=== PATIENT | female | born 1960 ===

== ENCOUNTER 2017-01-20 07:23 | Day surgery (SDC) | payer BC ==
[2017-01-12 14:07] VITALS: BMI 26.5
--- NOTE | 2017-01-17 09:17 | HP ---
Admitting History and Physical - Primary Care Physician PCP: Halle Clolier - Admission Chief Complaint: Right atypia History of Present Illness: 56 year old postmenapausal female . Screening mammogram 09/2016 showed right breast assymetry at 12:00. Us showed 7mm retroareolar density. US core bx 10/2016 right breast 12:00 Atypical lobular hyperplasia. 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 History Source: Patient Limitations to Obtaining History: No Limitations - Past Medical History Cardiovascular: Yes: Hyperlipdemia - Past Surgical History Additional Past Surgical History: bartholins cystectomy left ankle repair excision of right eye cyst bilateral toe surgery - Smoking History Smoking history: Never smoked Have you smoked in the past 12 months: No - Alcohol/Substance Use Hx Alcohol Use: Yes (socially) Home Medications - Allergies Allergies/Adverse Reactions: Allergies Allergy/AdvReac Type Severity Reaction Status Date / Time Penicillins Allergy Severe Rash Verified 01/12/17 13:59 - Home Medications Home Medications: Ambulatory Orders Pravastatin Sodium [Pravachol (Nf)] 20 mg PO DAILY 01/12/17 Family Disease History - Family Disease History Family Disease History: CA: Grandparent (maternal GM breast ca unknown age// Maternal GGM breast cancer) Physical Examination Constitutional: Yes: Well Nourished Breast(s): Yes: Other (diffusely nodular no palpable masses or adenopathy bilateral post bx changes right breast) Problem List - Problems (1) Atypical lobular hyperplasia of right breast Code(s): N60.91 - UNSPECIFIED BENIGN MAMMARY DYSPLASIA OF RIGHT BREAST Assessment/Plan Right breast wide excision with mammogram needle localization
[~2017-01-20 07:23] MED LIST: LACTATED RINGERS SOLUTION 1,000 ML IV SCH; ONDANSETRON 4 MG/2 ML VIAL IVPUSH PRN; PROMETHAZINE HCL 25 MG/1 ML VIAL IVPUSH PRN; oxyCODONE HCL 5 MG TABLET PO PRN
[2017-01-20] MEDS ORDERED: PROPOFOL 20 ML ONE ×6 (10:13→11:49)
[2017-01-20] MEDS ORDERED: KETOROLAC TROMETHAMINE 30 MG/1 ML VIAL ONE (10:14)
[2017-01-20] MEDS ORDERED: DEXAMETHASONE SOD PHOSPHATE 4 MG/1 ML VIAL ONE (10:14)
[2017-01-20] MEDS ORDERED: ceFAZolin SODIUM 1 GM VIAL ONE (10:14)
[2017-01-20] MEDS ORDERED: ONDANSETRON 4 MG/2 ML VIAL ONE ×2 (10:14→11:14)
[2017-01-20] MEDS ORDERED: DESFLURANE GAS 240 ML BOTTLE IH ONE (10:18)
[2017-01-20] MEDS ORDERED: SCOPOLAMINE HYDROBROMIDE 1 PATCH PATCH.TD72 ONE (10:25)
[2017-01-20] MEDS ORDERED: ACETAMINOPHEN INJECTION 100 ML IVPB ONE (10:26)
[2017-01-20] MEDS ORDERED: MIDAZOLAM HCL 2 MG/2 ML SINGLE DOSE VIAL ONE (10:26)
[2017-01-20] MEDS ORDERED: CLINDAMYCIN PHOSPHATE 600 MG/4 ML VIAL ONE ×2 (10:37)
[2017-01-20] MEDS ORDERED: LIDOCAINE HCL 1%, 10 MG/ML (20ML VIAL) ONE (10:40)
[2017-01-20] MEDS ORDERED: LIDOCAINE HCL 1%, 10 MG/ML (50 mL VIAL) INF ONE (11:09)
[2017-01-20] MEDS ORDERED: ePHEDrine SULFATE 50 MG/1 ML AMPULE ONE (11:54)
[2017-01-20] MEDS ORDERED: BUPIVACAINE HCL/PF 0.25% (2.5MG/ML) 10 ML VIAL IJ ONE (12:08)
[2017-01-20] MEDS ORDERED: ONDANSETRON 4 MG/2 ML VIAL IVPB PRN (12:27)
[2017-01-20] MEDS ORDERED: KETOROLAC TROMETHAMINE 30 MG/1 ML VIAL IVPUSH PRN (12:27)
[2017-01-20] MEDS ORDERED: DEXTROSE 5%-0.45% SALINE 1,000 ML IV SCH (12:30)
[2017-01-20 16:10] VITALS: BP 124/70; PULSE 66; TEMP 97.8
--- NOTE | 2017-01-23 17:06 | OP ---
DATE OF OPERATION: 01/20/2017 PREOPERATIVE DIAGNOSIS: Right breast atypia. POSTOPERATIVE DIAGNOSIS: Right breast atypia. PROCEDURE: Right breast wide excision with needle localization. SURGEON: Halle Collier MD NUTRITION PROGRAM INSTRUCTOR: AMIRA Diallo ANESTHESIOLOGIST: Chau Herndon MD SPECIMEN: Right breast tissue. ESTIMATED BLOOD LOSS: Minimal. INDICATIONS FOR PROCEDURE: The patient is a 56-year-old woman with a strong family history of breast cancer. Screening mammogram showed right breast asymmetry. Ultrasound showed a 7-mm retroareolar mass. Core biopsy showed atypical lobular hyperplasia. Excision was recommended to the patient who is going to the operating room today for the procedure. DESCRIPTION OF PROCEDURE: The patient was taken to breast imaging where she underwent localization of the clip in the right breast. She was taken to ambulatory surgery where informed consent was obtained. The right breast was identified with a marker. She was taken to the operating room where sequential compression stockings were placed on both legs. She received Cleocin prior to surgery. General anesthesia was initiated. The guidewire could be seen exiting the right breast in the 12 o'clock position. The skin was infiltrated with 1% lidocaine. An incision was made at the upper border of the areola. The dissection was deepened using electrocautery. The tip of the needle was identified and grasped with a clamp. Electrocautery was used to mobilize the tissue around the tip of the needle until it was completely from the breast parenchyma. There was some bleeding which was controlled with electrocautery. The needle was disassembled, and the specimen and wire were removed. A specimen radiograph did not show the clip. Tissue from the inferior margin was removed. Specimen radiograph of this specimen showed the clip. The main specimen was labeled with a silk suture, indicating long lateral and short superior. The inferior margin was labeled with a stitch at the biopsy cavity site. Both specimen were placed in formalin and sent to Pathology for further examination. The patient tolerated the procedure well. At the end of the procedure, all sponge and instrument counts were correct. She was taken to the recovery room in satisfactory condition. Brooklynn [id number]
--- NOTE | 2017-01-25 12:50 | PATH ---
Surgical Pathology Report Patient Name: BEN ROY [facility]. Rec. #: [id number] /Age/Gender: 1960 (Age: 56) / F Account: [id number] Location: [facility] AMBULATORY Taken: 01/20/2017 Received: 01/21/2017 Reported: 01/25/2017 Physicians: Halle Collier M.D. Specimen(s) Received A: RIGHT BREAST WIDE EXCISION B: INFERIOR MARGIN RIGHT BREAST Clinical History Atypia Final Diagnosis A. BREAST, RIGHT, WIDE EXCISION: BREAST TISSUE SHOWING ATYPICAL DUCTAL HYPERPLASIA (ADH) ARISING IN A BACKGROUND OF PROLIFERATIVE FIBROCYSTIC CHANGES INCLUDING CYSTIC APOCRINE METAPLASIA, USUAL DUCTAL HYPERPLASIA (UDH), STROMAL FIBROSIS AND ASSOCIATED CALCIFICATIONS. B. BREAST, RIGHT, INFERIOR MARGIN, EXCISION: BENIGN BREAST TISSUE SHOWING FIBROCYSTIC CHANGES INCLUDING MICROCYST FORMATION AND USUAL DUCTAL HYPERPLASIA (UDH). PRIOR BIOPSY SITE CHANGES ARE PRESENT. Electronically Signed Katherine Delcid M.D. Gross Description A. Received in formalin, labeled "right breast wide excision," is a 4.6 x 4.2 x 1.8 cm. jang-yellow, irregular, portion of fibroadipose tissue with a needle localization wire present. There is a short suture marking the superior aspect and a long suture marking the lateral aspect, per the surgeon. There is no skin or nipple present. The specimen is inked as follows: Superior blue; inferior green; anterior and lateral red; medial yellow; deep black. The specimen is serially sectioned from anterior to deep. Sectioning reveals diffuse dense, white, focally firm fibrous tissue. No definitive mass is identified. The specimen is entirely and sequentially submitted in 16 cassettes as follows: 1-anterior margin; [id number]-[id number] and sequentially submitted fibrous tissue (one whole bisected section each in cassettes 01/15, 03/20, 05/22 and ); 16-deep margin. Time to formalin fixation: 32 minutes Total formalin fixation time: Approximately 30 hours. B. Received in formalin labeled "inferior margin right breast," is a 3.3 x 2.3 x 0.8 cm irregular portion of fibroadipose tissue with a suture marking the biopsy cavity side, per the surgeon. The new margin is inked blue and the specimen is serially sectioned. The specimen is entirely and sequentially submitted in 4 cassettes. DL/01/21/2017 saudi/01/21/2017
== END 2017-01-20 15:15 | disposition home or self-care (01) ==
LOC: FASU 07:23
PROVIDERS: ATTEND Surgery
PROC: 0HBT0ZX Excision of Right Breast, Open Approach, Diagnostic (ICD-10-PCS; principal; 2017-01-20 10:30)
DX: N60.11 Diffuse cystic mastopathy of right breast (principal); N60.91 Unspecified benign mammary dysplasia of right breast; Z80.3 Family history of malignant neoplasm of breast; N60.81 Other benign mammary dysplasias of right breast; N60.31 Fibrosclerosis of right breast; N64.89 Other specified disorders of breast
CPT/HCPCS: 19281; 88307-TC; 94760